=== PATIENT | male | born 1960 | race Caucasian/White ===

== ENCOUNTER 2017-06-08 11:30 | Emergency (ER) | payer OTHER ==
[2017-06-08] MEDS: HYDROCODONE/APAP (5/325) TAB PO (14:29)
[2017-06-08] MEDS: IBUPROFEN 600 MG TAB PO (14:29)
== END 2017-06-08 16:13 | disposition home or self-care (01) ==
LOC: FTE 11:30
DX: M25.561 Pain in right knee (principal)
CPT/HCPCS: 29505; 73562; 99283-25